=== PATIENT | male | born 1985 | race African-American/Black ===

== ENCOUNTER 2021-08-19 21:56 | Emergency (ER) | payer SELFPAY ==
[~2021-08-19] VITALS: Ht 167.6 cm; Wt 81.8 kg
[2021-08-19] MEDS ORDERED: predniSONE 20 mg tablet PO ONE (23:50)
[2021-08-19] MEDS ORDERED: triamcinolone acetonide 40mg/ml inj IM ONE (23:50)
[2021-08-19] MEDS ORDERED: PRED20TA PO (23:50)
[2021-08-19] MEDS ORDERED: famotidine 20mg tablet PO ONE (23:50)
[2021-08-20] VITALS: BP 148/102
== END 2021-08-20 00:03 | disposition home or self-care (01) ==
LOC: ER 21:57
DX: L25.9 Unspecified contact dermatitis, unspecified cause (principal); R21 Rash and other nonspecific skin eruption; Z91.018 Allergy to other foods; Z79.899 Other long term (current) drug therapy
CPT/HCPCS: 93005; 96372; 99283; J3301; J7512

== ENCOUNTER 2024-02-17 14:27 | Emergency (ER) | payer MEDICAID ==
[~2024-02-17] VITALS: Ht 167.6 cm; Wt 86.0 kg
[2024-02-17 14:49] VITALS: BP 163/103; PULSE 73; TEMP 98.1; O2SAT 97
[2024-02-17] MEDS ORDERED: HYDR-3965 PO (15:44)
[2024-02-17] MEDS ORDERED: AMOX-117 PO (15:44)
[2024-02-17] MEDS ORDERED: ketorolac trometh inj. 60 MG/2 ML VIAL IM ONE (15:45)
[2024-02-17 16:18] VITALS: RESP 12
[2024-02-17] MEDS: ketorolac tromethamine 15mg/ml inj. IM ONE (16:18)
== END 2024-02-17 16:32 | disposition home or self-care (01) ==
LOC: ER 14:27
DX: K02.9 Dental caries, unspecified (principal); K04.7 Periapical abscess without sinus; Z91.018 Allergy to other foods
CPT/HCPCS: 96372; 99283; J1885